=== PATIENT | male | born 2005 | race Caucasian/White ===

== ENCOUNTER 2024-09-29 18:21 | Emergency (ER) | payer OTHER, SELFPAY ==
[2024-09-29 19:29] VITALS: BP 116/73; PULSE 79; RESP 18; TEMP 36.9; O2SAT 99; BMI 20.6
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
[2024-09-29] MEDS: DIPHTH,PERTUSS(ACELL),TET VAC 0.5 ML SYR- ADULT IMi (20:44)
== END 2024-09-29 22:24 | disposition home or self-care (01) ==
LOC: SERX 20:40
PROVIDERS: Emergency Provider Emergency Medicine
DX: T23.252A Burn of second degree of left palm, initial encounter (principal); T23.212A Burn of second degree of left thumb (nail), initial encounter; T22.111A Burn of first degree of right forearm, initial encounter; T31.11 Burns involving 10-19% of body surface with 10-19% third degree burns; X15.3XXA Contact with hot saucepan or skillet, initial encounter; Y92.511 Restaurant or cafe as the place of occurrence of the external cause; Y99.0 Civilian activity done for income or pay; Z23 Encounter for immunization
CPT/HCPCS: 80053; 80307; 81001; 82550; 85025; 90471; 90715; 99283

== ENCOUNTER 2024-11-07 16:40 | Emergency (ER) | payer MEDICAID, SELFPAY ==
[2024-11-07 16:51] VITALS: BP 125/73; PULSE 115; RESP 20; TEMP 36.9; O2SAT 100
--- NOTE | 2024-11-07 17:05 | XR_ITS ---
Examination: CT brain head without contrast. 2-D sagittal coronal reconstructions Date and time of exam:November 07, 2024, 1820 hours INDICATIONS: Patient fell today with injury to the head, right-sided head pain CTDI: vol (mGy):51.4 DLP: (mGycm):1069 Technique: Multiple CT axial sections of the brain have been obtained, 5 mm slice thickness. Contrast has not been administered. 2-D sagittal, coronal reconstructions have been obtained Low dose protocols were performed. One or more of the following dose reduction techniques were used; automated exposure control, adjustment of the mA and/or KV according to patient size, use of iterative reconstruction technique. Findings: No significant ventricular enlargement. Right frontal scalp swelling Intra-axial or extra-axial hemorrhage density is not seen. No mass effect or midline shift Basal cisterns are not remarkable. Fourth ventricle is midline. Cranial vault intact. Impression: Negative for acute hemorrhage, mass effect or midline shift
--- NOTE | 2024-11-07 17:05 | XR_ITS ---
Examination: CT cervical spine without contrast 2-D sagittal reconstructions 2-D coronal reconstructions 3-D reconstructions. Exam date and time:November 07, 2024, 1820 hours INDICATIONS: Patient fell today with injury to the neck, neck pain CTDI:vol (mGy) 15 DLP: (mGycm) 380 Technique: Multiple 2 mm axial sections of the cervical spine have been obtained. The coronal and sagittal reconstructions have been obtained. 3-D reconstructions have been obtained. Low dose protocols were performed. One or more of the following dose reduction techniques were used; automated exposure control, adjustment of the mA and/or KV according to patient size, use of iterative reconstruction technique. Findings: Axial sections demonstrate intact base of the skull. 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 No acute cervical vertebral body fracture seen. Alignment posterior spinous processes satisfactory. Impression: No acute cervical fracture.
--- NOTE | 2024-11-07 17:05 | XR_ITS ---
Examination: CT maxillofacial, without intravenous contrast. 2-D sagittal reconstructions. 3-D reconstructions. Date and time of exam:November 07, 2024, 1820 hours INDICATIONS: Patient fell today with injury to the face, right facial eyebrow injury and pain CTDI: vol (mGy):20.7 DLP: (mGycm):344 Technique: Multiple axial images of maxillofacial region, 3.0 mm slice thickness. 2-D sagittal and coronal reconstructions. 3-D reconstructions. Low dose protocols were performed. One or more of the following dose reduction techniques were used; automated exposure control, adjustment of the mA and/or KV according to patient size, use of iterative reconstruction technique. Findings: Soft tissue defect and swelling anterior to the right frontal bone The optic globes appear intact Frontal and frontal sinuses intact No nasal bone fractures Maxilla and mandible intact IMPRESSION: No acute facial fracture.
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
[2024-11-07] MEDS: LIDOCAINE HCL 1% 20 ML VIAL 10 ML INFL (18:44)
== END 2024-11-07 20:30 | disposition home or self-care (01) ==
PROVIDERS: Emergency Provider Emergency Medicine; PCP Family Medicine
DX: S01.81XA Laceration without foreign body of other part of head, initial encounter (principal); S60.022A Contusion of left index finger without damage to nail, initial encounter; S19.9XXA Unspecified injury of neck, initial encounter; S09.93XA Unspecified injury of face, initial encounter; W19.XXXA Unspecified fall, initial encounter
CPT/HCPCS: 12002; 70450; 70486; 72125; 99284; J3490

== ENCOUNTER 2024-11-13 16:22 | Emergency (ER) | payer MEDICAID, SELFPAY ==
--- NOTE | 2024-11-13 16:36 | PD.EDHAND ---
Upper Extremity Injury RME/HPI General Chief Complaint: Hand/Wrist Problems Stated Complaint: INJURED LEFT FINGER Time Seen by Provider: 11/13/24 16:35 Source: patient Arrival date/time: 11/13/24 16:22 Limitations: no limitations RME / HPI RME / HPI narrative: c Related Data Previous Rx's ?Medication ?Instructions ?Recorded acetaminophen 500 mg tablet 500 mg PO Q8HR PRN pain #20 tabs 01/12/19 ibuprofen 400 mg tablet 400 mg PO Q8H PRN pain #20 tabs 01/12/19 hydroxyzine HCl 25 mg tablet 25 mg PO TID PRN anxiety #30 tabs 03/19/21 ibuprofen 600 mg tablet 600 mg PO Q6H #30 tabs 11/21/22 dextromethorphan-guaifenesin 10 10 ml PO Q8H PRN cough #500 mL 07/23/23 mg-100 mg/5 mL oral liquid ibuprofen 600 mg tablet 600 mg PO TID PRN pain #30 tabs 07/23/23 hydrocodone 5 mg-acetaminophen 325 1 tab PO BID PRN pain #6 tabs 02/11/24 mg tablet ibuprofen 600 mg tablet 600 mg PO Q6H #30 tabs 02/11/24 acetaminophen 500 mg capsule 1,000 mg (2 x 500 mg) PO Q8HR PRN 03/06/24 pain #30 caps ibuprofen 600 mg tablet 600 mg PO TID PRN pain #30 tabs 11/07/24 Allergies Allergy/AdvReac Type Severity Reaction Status Date / Time amoxicillin Allergy Mild Rash Verified 11/13/24 16:24 Review of Systems Review of Systems Systems Reviewed: All systems reviewed, normal except as documented ED Exam General Limitations: Present no limitations General appearance: Present alert and in no apparent distress Head Head exam: Present atraumatic Eye Eye exam: Present normal appearance, PERRL and EOMI ENT ENT exam: Present normal exam, normal oropharynx and mucous membranes moist Neck Neck exam: Present normal inspection, full ROM and trachea midline Chest Chest inspection: Present normal inspection and symmetric chest wall rise Respiratory Respiratory exam: Present normal lung sounds bilaterally Cardiovascular Cardiovascular exam: Present regular rate, normal rhythm and normal heart sounds Abdominal Exam Abdominal exam: Present soft and normal bowel sounds Extremities Exam Extremities exam: Present other (Venous pain at the proximal aspect of the left index finger. There is minimal amounts of edema present. Patient is unable to fully flex or extend his left index finger.) Back Exam Back exam: Present normal inspection and full ROM Neurological Exam Neurological exam: Present alert and oriented X3 Psychiatric Psychiatric exam: Present normal affect and normal mood Skin Skin exam: Present warm, dry, intact and normal color Course Quality Measures none Orders Category Date Time Status XR finger LT min 2V Stat Exams 11/13/24 17:16 Completed Vital Signs Vital signs: Vital Signs Temperature 97.6 F 11/13/24 16:37 Pulse Rate 77 11/13/24 16:37 Respiratory Rate 20 11/13/24 16:37 Blood Pressure 113/71 11/13/24 16:37 Pulse Oximetry (%) 99 11/13/24 16:37 Oxygen Delivery Method Room Air 11/13/24 16:37 Extremity Injury MDM Narrative MDM Narrative:: 19-year-old male who is here today for left index finger fracture. He was placed in a custom aluminum splint by me. He will continue using this. Use Tylenol or Profen for comfort. Follow-up with his primary physician for recheck. Consider referral to orthopedics as needed. Return anytime for worsening or emergent changes. Patient data External records reviewed:: None Clinical information provided by:: patient Social determinants that could affect healthcare access:: none Patient has the following chronic illnesses:: n/a How is presenting disease/condition affected by chronic disease/condition?: no chronic disease Evaluation data The following diagnostics were reviewed and interpreted by me:: radiology exam(s) (2 fracture at the base of the left index finger) Lab and/or radiology exams considered but not ordered:: n/a Interpretation Summary: Chief fracture of the base of the left index finger Medications / Prescriptions Medications or Prescriptions considered but not ordered:: n/a Medication administrations:: n/a Consultations Consultation(s) initiated? (list below): No Diagnosis Upper Extremity Injury Differential Diagnosis: finger sprain, dislocation of finger and fracture of hand Most likely diagnosis given after review of the tests above:: Fracture base of left index finger Admission Indicated Admission indicated?: not indicated Admission Request Was there a request for admission?: No Disposition Plan Disposition Plan: Discharge Discharge Attestation Discharge Attestation: The patient and all family members were given an opportunity to ask questions and understood the discharge instructions. Discharge instructions specifically effects, indications for sooner follow up or return to the emergency department, and the expected course of current diagnosis. Patient condition: Stable Discharge Plan Plan Patient Disposition: HOME (Self Care) Patient condition on transfer: Stable Prescriptions/Referrals Prescriptions/Med Rec: No Action acetaminophen 500 mg tablet 500 mg PO Q8HR PRN (Reason: pain) Qty: 20 0RF Rx Instructions: Take one Tylenol and one 400 mg ibuprofen together every 8 hours ibuprofen 400 mg tablet 400 mg PO Q8H PRN (Reason: pain) Qty: 20 0RF Rx Instructions: Take one Tylenol and one 400 mg ibuprofen together every 8 hours hydroxyzine HCl 25 mg tablet 25 mg PO TID PRN (Reason: anxiety) Qty: 30 0RF ibuprofen 600 mg tablet 600 mg PO Q6H Qty: 30 0RF hydrocodone-acetaminophen 5-325 mg tablet 1 tab PO BID MDD 10 PRN (Reason: pain) Qty: 6 0RF ibuprofen 600 mg tablet 600 mg PO Q6H Qty: 30 0RF acetaminophen 500 mg capsule 1,000 mg PO Q8HR PRN (Reason: pain) Qty: 30 0RF ibuprofen 600 mg tablet 600 mg PO TID PRN (Reason: pain) Qty: 30 0RF dextromethorphan-guaifenesin 10-100 mg/5 mL liquid 10 ml PO Q8H PRN (Reason: cough) Qty: 500 0RF ibuprofen 600 mg tablet 600 mg PO TID PRN (Reason: pain) Qty: 30 0RF Referrals: Chase Juan MD [Primary Care Provider] - In 1 week Problem List Clinical Impression: Closed fracture of phalanx of left index finger Patient/Caregiver Discharge Instructions Education Materials: ED Fracture, Finger, Closed Additional Instructions: - Use the provided splint. - Use Tylenol and ibuprofen as needed for comfort. - Follow-up with your primary clinic for recheck in the next 1 to 2 weeks. Consider referral to orthopedics/hand surgery as needed. - Return here at anytime for any worsening or emergent changes. Print Language: Vietnamese Stand Alone Forms: [employer] Award Info., Work/School Release, Patient Portal Info Letter
[2024-11-13 16:37] VITALS: BP 113/71; PULSE 77; RESP 20; TEMP 36.4; O2SAT 99
--- NOTE | 2024-11-13 17:16 | XR_ITS ---
Examination: Fingers, left hand second digit 3 views Technique: AP, oblique, lateral views left hand second digit 3 views. Exam date and time: November 13, 2024, 1716 hours INDICATIONS: Injury to hand one week ago with second digit pain. FINDINGS: 3 mm intra-articular chip fracture off the base of the proximal phalanx index finger No dislocation No foreign body IMPRESSION: Small chip fracture off the base of the proximal phalanx second digit
== END 2024-11-13 20:35 | disposition home or self-care (01) ==
PROVIDERS: Emergency Provider Emergency Medicine; PCP Family Medicine
DX: S62.611A Displaced fracture of proximal phalanx of left index finger, initial encounter for closed fracture (principal); X58.XXXA Exposure to other specified factors, initial encounter
CPT/HCPCS: 73140; 99283

== ENCOUNTER 2025-01-07 01:34 | Emergency (ER) | payer MEDICAID, SELFPAY ==
[2025-01-07 01:47] VITALS: BP 110/71; PULSE 90; RESP 18; TEMP 37.1; O2SAT 99
[2025-01-07] MEDS: DOXYCYCLINE 100 MG TABLET PO (02:07)
[2025-01-07] MEDS: HYDROcodone/APAP 5/325 TABLET 1 TAB PO (02:07)
--- NOTE | 2025-01-07 02:08 | PD.EDDENTL ---
ED Dental RME/HPI General Chief complaint: Dental/Oral/Throat Stated complaint: SWELLING TO THE LEFT SIDE OF MOUTH Time Seen by Provider: 01/07/25 01:56 Arrival date/time: 01/07/25 01:34 19M with history of asthma presents to ED with L lower dental pain and facial swelling. Patient does not go to a dentist regularly, but will. Limitations: no limitations Related Data Previous Rx's ?Medication ?Instructions ?Recorded acetaminophen 500 mg tablet 500 mg PO Q8HR PRN pain #20 tabs 01/12/19 ibuprofen 400 mg tablet 400 mg PO Q8H PRN pain #20 tabs 01/12/19 hydroxyzine HCl 25 mg tablet 25 mg PO TID PRN anxiety #30 tabs 03/19/21 ibuprofen 600 mg tablet 600 mg PO Q6H #30 tabs 11/21/22 dextromethorphan-guaifenesin 10 10 ml PO Q8H PRN cough #500 mL 07/23/23 mg-100 mg/5 mL oral liquid ibuprofen 600 mg tablet 600 mg PO TID PRN pain #30 tabs 07/23/23 hydrocodone 5 mg-acetaminophen 325 1 tab PO BID PRN pain #6 tabs 02/11/24 mg tablet ibuprofen 600 mg tablet 600 mg PO Q6H #30 tabs 02/11/24 acetaminophen 500 mg capsule 1,000 mg (2 x 500 mg) PO Q8HR PRN 03/06/24 pain #30 caps ibuprofen 600 mg tablet 600 mg PO TID PRN pain #30 tabs 11/07/24 doxycycline hyclate 100 mg tablet 100 mg PO BID 10 days #20 tabs 01/07/25 Allergies Allergy/AdvReac Type Severity Reaction Status Date / Time amoxicillin Allergy Mild Rash Verified 11/13/24 16:24 Review of Systems Review of Systems Systems Reviewed: All systems reviewed, normal except as documented Constitutional Constitutional: Reports system reviewed and no additional complaints, except as documented, Denies fever(s) and Denies headache(s) ENT Ears, Nose, Mouth, and Throat: Reports as per HPI, Reports dental pain, Denies disequilibrium and Denies headache(s) Cardiovascular Cardiovascular: Reports system reviewed and no additional complaints, except as documented, Denies chest pain and Denies dyspnea Respiratory Respiratory: Reports system reviewed and no additional complaints, except as documented, Denies cough and Denies dyspnea Gastrointestinal Gastrointestinal: Reports system reviewed and no additional complaints, except as documented, Denies abdominal pain, Denies nausea and Denies vomiting Neurologic Neurologic: Reports system reviewed and no additional complaints, except as documented, Denies confusion, Denies disequilibrium and Denies headache(s) Psychiatric Psychiatric: Denies confusion Past Medical History Past Medical History CARDIAC: Negative Congestive Heart Failure RESPIRATORY: Positive Asthma; Negative Chronic Obstructive Pulmonary Disease (COPD) GENITOURINARY: Negative Renal Disease ENDOCRINE: Negative Diabetes Mellitus Type 1 or Diabetes Mellitus Type 2 PSYCHO/SOCIAL: Positive Anxiety Social History SMOKING STATUS: Current every day smoker SUBSTANCE USE: marijuana ED Exam General Limitations: Present no limitations General appearance: Present alert and in no apparent distress Head Head exam: Present atraumatic Eye Eye exam: Present normal appearance, PERRL and EOMI ENT ENT exam: Present mucous membranes moist Expanded ENT Exam Teeth exam: Present dental caries and dental tenderness # (L jaw ) Neck Neck exam: Present normal inspection, full ROM and trachea midline Chest Chest inspection: Present normal inspection and symmetric chest wall rise Respiratory Respiratory exam: Present normal lung sounds bilaterally Cardiovascular Cardiovascular exam: Present regular rate, normal rhythm and normal heart sounds Abdominal Exam Abdominal exam: Present soft and normal bowel sounds Extremities Exam Extremities exam: Present normal inspection and full ROM Back Exam Back exam: Present normal inspection and full ROM Neurological Exam Neurological exam: Present alert, oriented X3 and CN II-XII intact Psychiatric Psychiatric exam: Present normal affect and normal mood Skin Skin exam: Present warm, dry, intact and normal color Course Quality Measures none Orders Category Date Time Status Doxycycline [Vibramycin] Med 01/07/25 01:56 Discontinued 100 mg PO X1 ONE HYDROcodone*/APAP 5/325 [[place] 5/325] Med 01/07/25 01:56 Discontinued 1 tab PO X1 ONE Vital Signs Vital signs: Vital Signs Temperature 98.7 F 01/07/25 01:47 Pulse Rate 90 01/07/25 01:47 Respiratory Rate 18 01/07/25 01:47 Blood Pressure 110/71 01/07/25 01:47 Pulse Oximetry (%) 99 01/07/25 01:47 Oxygen Delivery Method Room Air 01/07/25 01:47 O2 at 99% on RA and WNLs Dental / Oral MDM Narrative MDM Narrative:: 19M with history of asthma presents to ED with L lower dental pain and facial swelling. Patient does not go to a dentist regularly, but will. Physical exam reveals multiple dental caries, but no obvious facial swelling. Some L jaw tenderness. Patient is afebrile, calm, and alert. Meds and intake counselor given. Patient data External records reviewed:: [facility] previous records Clinical information provided by:: patient Social determinants that could affect healthcare access:: none Patient has the following chronic illnesses:: asthma How is presenting disease/condition affected by chronic disease/condition?: uneffected by Evaluation data The following diagnostics were reviewed and interpreted by me:: other (specify) (none) Lab and/or radiology exams considered but not ordered:: not ordered Interpretation Summary: n/a Medications / Prescriptions Medications or Prescriptions considered but not ordered:: ordered Medication administrations:: Medication Administration History Discontinued Medications Hydrocodone Bitart/Acetaminophen (Hydrocodone/Apap 5/325 Tablet) 1 tab PO X1 ONE Stop: 01/07/25 01:57 Last Admin: 01/07/25 02:07 Dose: 1 tab Documented By: DORIS Doxycycline Hyclate (Doxycycline 100 Mg Tablet) 100 mg PO X1 ONE Stop: 01/07/25 01:57 Last Admin: 01/07/25 02:07 Dose: 100 mg Documented By: DORIS above Consultations Consultation(s) initiated? (list below): No Diagnosis Dental Differential Diagnosis: gingival abscess, dental caries, toothache, dental abscess, fracture of tooth and aphthous ulcer Most likely diagnosis given after review of the tests above:: dental abscess Admission Indicated Admission indicated?: not indicated Admission Request Was there a request for admission?: No Disposition Plan Disposition Plan: Discharge Discharge Attestation Discharge Attestation: The patient and all family members were given an opportunity to ask questions and understood the discharge instructions. Discharge instructions specifically effects, indications for sooner follow up or return to the emergency department, and the expected course of current diagnosis. Patient condition: Stable Discharge Plan Plan Patient Disposition: HOME (Self Care) Discharge Disposition comment: Stable Prescriptions/Referrals Prescriptions/Med Rec: New doxycycline hyclate 100 mg tablet 100 mg PO BID 10 Days Qty: 20 0RF No Action acetaminophen 500 mg tablet 500 mg PO Q8HR PRN (Reason: pain) Qty: 20 0RF Rx Instructions: Take one Tylenol and one 400 mg ibuprofen together every 8 hours ibuprofen 400 mg tablet 400 mg PO Q8H PRN (Reason: pain) Qty: 20 0RF Rx Instructions: Take one Tylenol and one 400 mg ibuprofen together every 8 hours hydroxyzine HCl 25 mg tablet 25 mg PO TID PRN (Reason: anxiety) Qty: 30 0RF ibuprofen 600 mg tablet 600 mg PO Q6H Qty: 30 0RF hydrocodone-acetaminophen 5-325 mg tablet 1 tab PO BID MDD 10 PRN (Reason: pain) Qty: 6 0RF ibuprofen 600 mg tablet 600 mg PO Q6H Qty: 30 0RF acetaminophen 500 mg capsule 1,000 mg PO Q8HR PRN (Reason: pain) Qty: 30 0RF ibuprofen 600 mg tablet 600 mg PO TID PRN (Reason: pain) Qty: 30 0RF dextromethorphan-guaifenesin 10-100 mg/5 mL liquid 10 ml PO Q8H PRN (Reason: cough) Qty: 500 0RF ibuprofen 600 mg tablet 600 mg PO TID PRN (Reason: pain) Qty: 30 0RF Problem List Clinical Impression: Dental abscess Patient/Caregiver Discharge Instructions Education Materials: ED Abscess Antibiotic ... Additional Instructions: Please follow-up with PCP within 24-48 hours and return immediately if symptoms worsen. Ibuprofen/Tylenol can be used simultaneously for greater fever/pain control. See dentist soon. Print Language: [place]se Stand Alone Forms: Patient Portal Info Letter BILLY/TRAVIS Supervising Physician BILLY/TRAVIS Supervising Physician: Dr. Wilkins
== END 2025-01-07 02:09 | disposition home or self-care (01) ==
LOC: SERX 02:11
PROVIDERS: Emergency Provider Emergency Medicine
DX: K04.7 Periapical abscess without sinus (principal)
CPT/HCPCS: 99283; A9270